=== PATIENT | female | born 1995 | race American Indian/Alaskan Native ===

== ENCOUNTER 2017-08-16 08:25 | Emergency (ER) | payer OTHER ==
[2017-08-16 08:37] VITALS: BMI 38.7
[2017-08-16 08:41] VITALS: BP 120/73; PULSE 107; RESP 18; TEMP 97; O2SAT 98
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
== END 2017-08-16 11:00 | disposition home or self-care (01) ==
LOC: H.ER 08:25
DX: Y04.2XXA Assault by strike against or bumped into by another person, initial encounter (principal); S01.81XA Laceration without foreign body of other part of head, initial encounter; S05.11XA Contusion of eyeball and orbital tissues, right eye, initial encounter; Z87.891 Personal history of nicotine dependence